=== PATIENT | female | born 1985 | race Caucasian/White ===

== ENCOUNTER 2020-07-02 09:55 | Emergency (ER) | payer OTHER ==
--- NOTE | 2020-07-02 10:04 | ED Physician Documentation ---
PD HPI UPPER EXT INJURY - Stated complaint Stated Complaint: R ARM INJURY - History obtained from History obtained from: Patient - History of Present Illness Location: Right, Elbow, Forearm Type of injury: Blunt / blow (she was sledding on snowy hill and ran into a tree. She put arm up to block her impact. Pain right proximal forearm/elbow. 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 No: Numbness Similar symptoms before: Has not had sx before Review of Systems Constitutional: denies: Fever, Chills Nose: denies: Rhinorrhea / runny nose, Congestion Throat: denies: Sore throat Respiratory: denies: Cough Skin: denies: Laceration (s) Musculoskeletal: denies: Neck pain, Back pain Neurologic: denies: Numbness, Confused, Altered mental status, Head injury PD PAST MEDICAL HISTORY - Past Medical History Past Medical History: No - Present Medications Home Medications: Ambulatory Orders Medication Instructions Recorded Confirmed No Known Home Medications 07/02/20 07/02/20 - Allergies Allergies/Adverse Reactions: Allergies Allergy/AdvReac Type Severity Reaction Status Date / Time No Known Drug Allergies Allergy Verified 07/02/20 10:16 PD ED PE NORMAL - Vitals Vital signs reviewed: Yes - General General: Alert and oriented X 3, No acute distress, Well developed/nourished - HEENT HEENT: Atraumatic - Neck Neck: Supple, no meningeal sign, No bony TTP, No adenopathy - Cardiac Cardiac: RRR, No murmur - Respiratory Respiratory: Clear bilaterally, Other (no chestwall tenderness) - Abdomen Abdomen: Soft, Non tender Results - Vitals Vitals: Vital Signs - 24 hr 07/02/20 07/02/20 07/02/20 10:02 10:07 11:22 Temperature 36.9 C Heart Rate 36 L 78 75 Respiratory 16 16 18 Rate Blood Pressure 143/81 H 128/58 L 107/65 O2 Saturation 100 100 99 Oxygen O2 Source Room air - Rads (name of study) right forearm Radiology: Prelim report reviewed (no fractures), See rad report PD MEDICAL DECISION MAKING - ED course Complexity details: reviewed results, considered differential, d/w patient Departure - Departure Disposition: 01 Home, Self Care Clinical Impression: Activity involving sledding Forearm contusion Qualifiers: Encounter type: initial encounter Laterality: right Qualified Code(s): S50.11XA - Contusion of right forearm, initial encounter Condition: Stable Record reviewed to determine appropriate education?: Yes Instructions: ED Contusion Upper Ext Comments: Of 8 and rest your arm as needed for discomfort. Sling as needed for discomfort and progress range of motion as tolerated. Ibuprofen 2-3 times a day and add Tylenol every 4 hours if needed. I would anticipate improvement in the pain through the day today as the initial swelling goes down and then likely sore for several days to week. Discharge Date/Time: 07/02/20 11:27
[2020-07-02] MEDS ORDERED: ACETAMINOPHEN 325 MG TABLET PO STA (10:20)
[2020-07-02] MEDS ORDERED: IBUPROFEN 600 MG TABLET PO STA (10:20)
--- NOTE | 2020-07-02 10:58 | XRAY Report ---
PROCEDURE: Forearm RT INDICATIONS: sledding and struck into tree with arm TECHNIQUE: 2 views of the forearm were acquired. COMPARISON: None FINDINGS: Bones: No fractures or dislocations. No suspicious bony lesions. Note is made of negative ulnar va riance. Soft tissues: No suspicious soft tissue calcifications or masses. IMPRESSION: No displaced fractures are seen on this plain study. In this patient with a given history of trauma, please correlate with focal tenderness. If clinically appropriate, please consider a short-term follow-up plain films series versus a dedicated CT study. Reviewed by: Faraz Rodriguez MD on 07/02/2020 9:57 AM [facility] Approved by: Faraz Rodriguez MD on 07/02/2020 9:57 AM [facility] Station ID: [id number]
[2020-07-02 11:22] VITALS: BP 107/65
== END 2020-07-02 11:27 | disposition home or self-care (01) ==
LOC: ED 09:55
DX: S50.11XA Contusion of right forearm, initial encounter (principal); M25.551 Pain in right hip; W22.09XA Striking against other stationary object, initial encounter; Y93.23 Activity, snow (alpine) (downhill) skiing, snowboarding, sledding, tobogganing and snow tubing; Y92.830 Public park as the place of occurrence of the external cause
CPT/HCPCS: 73090; 99282; 99283; A9270